=== PATIENT | male | born 1980 | race African-American/Black ===

== ENCOUNTER 2021-06-13 13:16 | Emergency (ER) | payer OTHER ==
[~2021-06-13] VITALS: Ht 177.8 cm; Wt 124.5 kg
[2021-06-13 13:34] VITALS: BP 143/89
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
--- NOTE | 2021-06-13 14:05 | RAD ---
CT HEAD AND C-SPINE WO History: Head injury. Pain. Comparison: None. Technique: Noncontrast CT of the head and cervical spine. Findings: CT HEAD: There is no evidence for intracranial mass or hemorrhage. There is no hydrocephalus or midline shift. No abnormal extra-axial fluid collections are present. No evidence of acute territorial infarction. Mild right maxillary sinus mucosal thickening versus mucus retention cyst. The skull and scalp are within normal limits. CT CERVICAL SPINE: There is no evidence for fracture in the cervical spine. Reversal of the normal cervical lordosis may be due to positioning. Degenerative disc space narrowing and circumferential osteophytes at C5-C6 and C6-C7 causing mild to moderate bilateral foraminal stenoses at these levels. No destructive osseous lesions are seen. Tiny right lung apex bleb. Impression: 1. No acute intracranial findings. 2. No acute osseous abnormality in the cervical spine. 3. Degenerative disc disease with circumferential osteophytes at C5-C6 and C6-C7 causing mild to mod erate bilateral foraminal stenoses. ------- Exposure: One or more of the following individualized dose reduction techniques were utilized for thi s examination: 1. Automated exposure control 2. Adjustment of the mA and/or kV according to patient size 3. Use of iterative reconstruction technique. Electronically signed by: Donte Herring MD (06/13/2021 2:02 PM) [id number]
== END 2021-06-13 15:23 | disposition home or self-care (01) ==
LOC: ER 13:16
DX: Z00.00 Encounter for general adult medical examination without abnormal findings (principal); R51.9 Headache, unspecified
CPT/HCPCS: 70450; 72125; 99284